=== PATIENT | female | born 1935 | race Caucasian/White ===

== ENCOUNTER 2017-10-11 17:23 | Inpatient (IN) | payer MEDICARE, BC, SELFPAY ==
[2017-10-11 17:38] VITALS: BP 198/98; PULSE 61; RESP 12; TEMP 37.3; O2SAT 96; BMI 38.2
--- NOTE | 2017-10-11 18:05 | ED.DCSUM_ITS ---
- ER Visit Summary Date of Service: 10/11/17 Chief Complaint: Generalized weakness History of Present Illness: The patient is a 82 F who presents with generalized weakness. Weakness is worse with attempt to get up and walk. states she is normally slow but today she is extremely slow and complains of weakness. She is unable to walk to the restroom. She denies fever or chills. She denies night sweats, weight loss or weight gain. She denies any double vision, blurred vision loss of vision. She denies chest pain or palpitations. She denies shortness of breath, cough, dyspnea on exertion orthopnea. She denies any abdominal pain, nausea, vomiting diarrhea. She has black or maroon stool. She denies dysuria, frequency, urgency or hematuria. She denies any back pain. She denies paresthesia, anesthesia or motor weakness. She denies headache. She denies polyuria, polydipsia or urgency. Please read written note for complete detail Physical Examination: Blood pressure is elevated 198/98. Head is atraumatic normocephalic. Pupils are equal round reactive. Extraocular muscles are intact. TMs are pearly white with landmarks noted. Nares patent with no drainage. Posterior pharynx without erythema or exudate. Uvula is midline. There is no dysphonia or dysphasia. Trachea is midline. There is no stridor with auscultation of the neck. Heart is regular without murmur, gallop or rub. S1 and S2 are normal. Lungs are clear to auscultation with good movement of air bilaterally. Abdomen soft flabby nontender. Bowel sounds are slightly diminished. There is no evidence of trauma or skin lesions. She is alert and oriented. She is slow to respond. She does answer questions appropriately. Motor and sensory are intact. DTRs are symmetric with no clonus or Babinski. Cranial 2 through 12 intact. Gait was not tested. Test Results: CBC is unremarkable. BMP is marked for glucose of 187, BUN of 30 with a creatinine of 1.45. BUN to creatinine ratio is greater than 21. UA is unremarkable. Emergency Department Course and Treatment: To assess patient's malaise generalized weakness will obtain a TSH to rule out hypothyroidism. Straight cath to assess for UTI. Light of prior history of colon and renal cancer will obtain a CBC to assess for anemia and electrolyte abnormality. Treatment Plan: Patient is unable to stand even with assistance of 2 ER personnel. Therefore, hospitalist has been paged for 23 observation for safety reasons. Disposition: 23 observation medical surgical floor with consultation to case management and physical therapy Impression: 1. Acute generalized weakness unknown cause 2. Inability to ambulate 3. Hyperglycemia in type I diabetic 4. Prerenal azotemia with renal insufficiency 5. History of hypertension This note was generated with [employer] dictation software. It may contain incorrect words, spelling, and punctuation that were not noted in review of the chart prior to signing ED Disposition - Plan for ED Patient: Chief Complaint: Weakness Referrals: Lidia Rodriguez MD [Primary Care Provider] -
[2017-10-11 18:15] LABS: Bacteria 0 SEEN /hpf (None Seen); Mucous, Urine 0 SEEN /hpf (<or=2+); Red Blood Cells-Urine 0 SEEN /hpf (0-5); Squamous Epithelial Cells - UA 0 SEEN /hpf (5-10)
[2017-10-11 18:16] LABS: Color, Urine Yellow (Yellow); Glucose, Dipstick Normal (Normal); Ketone-Dipstick Negative (Negative); Leukocyte Esterase-Dipstick 25 /ul (Negative); Nitrite-Dipstick Negative (Negative); Occult Blood-Urine 10 /ul (Negative); Protein-Dipstick 30 mg/dl (Negative); Urine Bilirubin Dipstick Negative (Negative); Urine Clarity Clear (Clear); Urine Urobilinogen Normal (Normal)
[2017-10-11 18:24] LABS: White Blood Cells 0-5 SEEN /hpf (0-5)
[2017-10-11 18:29] LABS: Absolute Lymphocyte Count 1.51 X10^3/ul (0.83-4.51); Absolute Neutrophil Count 5.8 X10^3/uL (2.0-7.7); Basophil# 0.02 X10^3/uL; Basophil% 0.3 % (0-1); Eosinophil# 0.06 X10^3/uL; Eosinophils% 0.8 % (0-5); Hematocrit 40.9 % (37-47); Hemoglobin 13.8 g/dl (12.0-15.0); Lymphocyte # 1.51 X10^3/ul (4.0); Mean Corp Hgb Conc 33.7 g/gl (32-36); Mean Corpuscular Volume 91.9 fL (81-99); Mean Platelet Vol. 8.5 fl (6.2-12.0); Monocyte# 0.58 X10^3/uL; Monocyte% 7.3 % (0-10); Neutrophil # 5.77 X10^3/uL (2.7-7.7); Neutrophil % 72.5 % (47-70); Platelet Count 187 K/mm3 (150-450); RBC Distribution Width CV 12.7 % (11.6-14.6); RBC Distribution Width SD 42.6 fl (35.1-43.9); Red Blood Count 4.45 M/mm3 (4.2-5.4)
[2017-10-11 18:31] LABS: POSITIVE COUNT NO; POSITIVE DIFFERENTIAL NO; POSITIVE MORPHOLOGY NO
[2017-10-11 18:46] LABS: Anion Gap 8 (5-15); BUN 30 mg/dL (7-18); Calcium,Total 9.2 mg/dL (8.5-10.1); Chloride 100 mmol/L (98-107); Creatinine, Serum 1.43 mg/dL (0.55-1.02); EST Glomerular Filtration Rate 37 mL/min (>60); Est Glom Filt Rate - Afr Amer 45 mL/min (>60); Estimated Creatinine Clearance 23.28 ml/min; Glucose 187 mg/dL (74-106); Potassium 3.9 mmol/L (3.5-5.1); Sodium Level 137 mmol/L (136-145); Thyroid Stim Hormone (TSH) 2.24 uIU/mL (0.358-3.74)
--- NOTE | 2017-10-11 19:59 | PCM.HP.STD ---
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/2009 Allergies ciprofloxacin [From Cipro] Allergy (Verified 10/11/17 17:40) Unknown Penicillins Allergy (Verified 10/11/17 17:40) Unknown rofecoxib [From Vioxx] Allergy (Verified 10/11/17 17:40) Unknown rosiglitazone [From Avandia] Allergy (Verified 10/11/17 17:40) Unknown sulfamethoxazole [From Septra] Allergy (Verified 10/11/17 17:40) Unknown trimethoprim [From Septra] Allergy (Verified 10/11/17 17:40) Unknown meloxicam [From Mobic] Adverse Reaction (Verified 10/11/17 17:40) Unknown naproxen [From Aleve] Adverse Reaction (Verified 10/11/17 17:40) Unknown triamcinolone [From Kenalog] Adverse Reaction (Verified 10/11/17 17:40) Fever and skin rash Home Medications: Ambulatory Orders Medication Instructions Recorded Aspirin [Lo-Dose Aspirin EC] 81 mg PO DAILY 02/20/17 Atenolol [Tenormin (Beta Calin)] 100 mg PO BID 02/20/17 Calcium Carb/Vitamin D [Os-Sung 1 tablet PO BID 02/20/17 500MG + D] Hydralazine HCl 50 mg PO BID 02/20/17 Insulin Glargine,Hum.rec.anlog 15 unit SC QHS 02/20/17 [Lantus] Multivit-Min/FA/Lycopen/Lutein 1 each PO DAILY 02/20/17 [Centrum Silver Tablet] Omeprazole 20 mg PO DAILY 02/20/17 Polyethylene Glycol 3350 [Miralax] 17 gm PO DAILY 02/20/17 traMADol [Ultram] 1 - 2 tab PO Q4H PRN PRN 02/25/17 Allopurinol [Zyloprim] 100 mg PO DAILY 10/11/17 Ferrous Sulfate 65 mg PO DAILY@0800 10/11/17 Isosorbide Mononitrate [Imdur] 30 mg PO DAILY 10/11/17 Smoking Status: Never smoker VTE Information - Inpt Only VTE Present on Admission: No VTE Mechan Device Prophylaxis: SCD's VTE Pharm Prophylaxis ordered?: Yes - Physical Exam Vital Signs Temp Pulse Resp BP Pulse Ox 99.1 F 61 12 198/98 H 96 10/11/17 17:38 10/11/17 17:38 10/11/17 17:38 10/11/17 17:38 10/11/17 17:38 Assessment/Plan Refer to written note.
[2017-10-11 20:05] VITALS: BMI 37.5
[2017-10-11 20:36] VITALS: BMI 37.6
[2017-10-11 20:51] VITALS: BP 162/56; PULSE 61; RESP 18; TEMP 36.4; O2SAT 97
[2017-10-11] MEDS: 0.9% Normal Saline 1,000 ML 100 ML IV (21:28)
[2017-10-11] MEDS: Ceftriaxone 1 GM/50 ML BAG IV (21:29)
[2017-10-11 21:51] LABS: Bedside Glucose 163 mg/dL (70-110)
[2017-10-11 21:55] VITALS: BP 130/65; PULSE 70
[2017-10-11] MEDS: Atenolol 100 MG Tablet PO (21:55)
[2017-10-11] MEDS: hydrALAZINE 50 MG Tablet PO (21:55)
[2017-10-12 03:40] VITALS: BP 160/88; PULSE 59; RESP 18; TEMP 36.8; O2SAT 99
--- NOTE | 2017-10-12 11:48 | DT_ITS ---
This patient was seen during an EMR downtime October 12, 2017 - October 19, 2017. This patient may have a combination of paper and electronic documentation or all paper documentation. All documentation is viewable within the e-chart portion of [employer] for each patient visit.
--- NOTE | 2017-10-12 12:00 | MRI_ITS ---
STUDY: MRI LUMBAR SPINE WITHOUT CONTRAST REASON FOR EXAM: Female, 82 years old. Low back pain, right leg pain and numbness and tingling in both legs. TECHNIQUE: Standardized fat and water weighted pulse sequences were obtained in the sagittal and axial planes. COMPARISON: None FINDINGS: T9-T10: (Sagittal only). Normal endplates. Normal disc height and morphology. Normal central canal and bilateral intervertebral neural foramina. T10-T11: (Sagittal only). Normal endplates. Normal disc height and morphology. Normal central canal and bilateral intervertebral neural foramina. T11-T12: (Sagittal only). Anterior marginal spurs. Normal T11 superior endplate. Schmorl's node in the central aspect of the T12 superior endplate. Small posterior bulging disc. Normal central canal and bilateral intervertebral neural foramina. T12-L1: Prominent anterior marginal spurs. Pronounced disc space height narrowing with mild Modic type I degenerative vertebral marrow edema underneath the vertebral endplates. Posterior marginal spurs. No extruded disc fragment. Normal central canal and bilateral lateral recesses. Mild asymmetric degenerative facet arthropathy. Normal bilateral intervertebral neural foramina. Normal lumbar lordosis. Moderate dextrorotatory scoliosis of the upper lumbar spine. Normal conus medullaris that terminates at the lower L1 vertebral body level. L1-2: Anterior marginal spurs. Pronounced disc space height narrowing. Modic type II degenerative vertebral marrow fatty changes underneath the vertebral endplates. Left lateral wedging of L1 and L2 vertebral bodies. Minimal degenerative retrolisthesis of L1 on L2. Normal central canal and bilateral lateral recesses. Mild asymmetric degenerative facet arthropathy. Normal bilateral intervertebral neural foramina. L2-3: Anterior marginal spurs. Pronounced disc space height narrowing with mild Modic type II degenerative vertebral marrow fatty changes underneath the vertebral endplates. Minimal degenerative retrolisthesis of L2 on L3. Normal central canal and bilateral lateral recesses. Mild to moderate asymmetric degenerative facet arthropathy. Normal bilateral intervertebral neural foramina. L3-4: Anterior marginal spurs. Pronounced disc space height narrowing. Minimal degenerative retrolisthesis of L3 on L4. Mild asymmetric central canal stenosis with an AP canal diameter of 9 mm. Bilateral posterior ligamenta flava hypertrophy. Moderate bilateral degenerative facet arthropathy. Mild stenosis of the right intervertebral neural foramen. Normal left intervertebral neural foramen. L4-5: Ankylosis of the L4 and L5 vertebral bodies. Posterior marginal spurs. Mild central canal stenosis with an AP canal diameter of 9 mm. Normal bilateral lateral recesses. Partial ankylosis of the facet joints. Normal bilateral intervertebral neural foramina. L5-S1: Moderate disc space height narrowing. Grade 1 degenerative anterolisthesis of L5 on S1. Suspicious right sided far lateral foraminal disc extrusion (series 5, image 6; series 6, image 6). Mild central canal stenosis with an AP canal diameter of 8 mm. Pronounced bilateral degenerative facet hypertrophy. Moderate stenosis of the right intervertebral neural foramen more than the left. Normal visualized sacral ala. Normal visualized paraspinous soft tissue structures. MRI/Spine Lumbar (Routine) IMPRESSION: 1. Suspicious of right-sided far lateral L5-S1 foraminal disc extrusion, moderate stenosis of the right intervertebral neural foramen, pronounced bilateral degenerative facet arthropathy and grade 1 degenerative anterolisthesis of L5 on S1. 2. Pronounced L3-L4 disc space height narrowing with minimal degenerative retrolisthesis of L2 on L3, mild asymmetric central canal stenosis and mild stenosis of the right intervertebral neural foramen. 3. Pronounced at L2-L3 disc space height narrowing with mild Modic type II degenerative vertebral marrow fatty changes underneath the vertebral endplates and minimal degenerative retrolisthesis of L2 on L3. 4. Pronounced L1-L2 disc space height narrowing with Modic type II degenerative vertebral marrow fatty changes underneath the vertebral endplates and minimal degenerative retrolisthesis of L1 on L2. 5. Pronounced T12-L1 disc space height narrowing with mild Modic type I degenerative vertebral marrow edema underneath the vertebral endplates. 6. Moderate dextrorotary scoliosis of the lumbar spine with left lateral wedging of L1 and L2 vertebral bodies. 7. Ankylosis of the L4 and L5 vertebral bodies and partial ankylosis of the L4-L5 facet joints. Electronically Signed: Franco Means MD at 10:48 EDT , Service support ,
[2017-10-16 12:02] LABS: Hematocrit 36.4 % (37-47); Hemoglobin 12.1 g/dl (12.0-15.0); Mean Corp Hgb Conc 33.2 g/gl (32-36); Mean Corpuscular Hgb 31.3 pg (27.0-32.0); Mean Corpuscular Volume 94.1 fL (81-99); Platelet Count 183 K/mm3 (150-450); RBC Distribution Width CV 12.5 % (11.6-14.6); RBC Distribution Width SD 41.9 fl (35.1-43.9); Red Blood Count 3.87 M/mm3 (4.2-5.4); White Blood Count 6.2 K/mm3 (4.4-11.0)
[2017-10-16 12:03] LABS: Mean Platelet Vol. 9.1 fl (6.2-12.0)
[2017-10-16 12:04] LABS: Scan Indicated on CBC? Y/N NO
[2017-10-17 08:57] LABS: Hematocrit 38.5 % (37-47); Hemoglobin 12.9 g/dl (12.0-15.0); Mean Corp Hgb Conc 33.5 g/gl (32-36); Mean Corpuscular Hgb 31.5 pg (27.0-32.0); Mean Corpuscular Volume 93.9 fL (81-99); RBC Distribution Width CV 12.6 % (11.6-14.6); RBC Distribution Width SD 43.3 fl (35.1-43.9); White Blood Count 7.2 K/mm3 (4.4-11.0)
[2017-10-17 08:58] LABS: Erythrocyte Sedimentation Rate 13 mm/hr (0-30); Mean Platelet Vol. 9.2 fl (6.2-12.0); Platelet Count 195 K/mm3 (150-450); Scan Indicated on CBC? Y/N NO
[2017-10-17 10:18] LABS: Anion Gap 9 (5-15); BUN 23 mg/dL (7-18); BUN/Creat Ratio 20.5 RATIO (10-20); Calcium,Total 8.7 mg/dL (8.5-10.1); Chloride 112 mmol/L (98-107); Creatinine, Serum 1.12 mg/dL (0.55-1.02); EST Glomerular Filtration Rate 50 mL/min (>60); Est Glom Filt Rate - Afr Amer 61 mL/min (>60); Estimated Creatinine Clearance 29.73 ml/min; Glucose 144 mg/dL (74-106); Magnesium 1.7 mg/dL (1.6-2.6); Potassium 3.7 mmol/L (3.5-5.1); Sodium Level 146 mmol/L (136-145)
[2017-10-17 10:20] LABS: BUN 19 mg/dL (7-18); BUN/Creat Ratio 18.4 RATIO (10-20); Creatinine, Serum 1.03 mg/dL (0.55-1.02); EST Glomerular Filtration Rate 55 mL/min (>60); Est Glom Filt Rate - Afr Amer 67 mL/min (>60); Estimated Creatinine Clearance 32.32 ml/min; Glucose 174 mg/dL (74-106)
[2017-10-17 10:21] LABS: Anion Gap 11 (5-15); Calcium,Total 8.7 mg/dL (8.5-10.1); Chloride 112 mmol/L (98-107); Magnesium 1.5 mg/dL (1.6-2.6); Potassium 3.6 mmol/L (3.5-5.1); Sodium Level 145 mmol/L (136-145)
[2017-10-20 12:10] LABS: Bedside Glucose 179 mg/dL (70-110)
[2017-10-20 12:12] LABS: Bedside Glucose 241 mg/dL (70-110)
[2017-10-20 12:14] LABS: Bedside Glucose 182 mg/dL (70-110)
[2017-10-20 12:15] LABS: Bedside Glucose 254 mg/dL (70-110)
[2017-10-20 12:17] LABS: Bedside Glucose 279 mg/dL (70-110)
[2017-10-20 12:18] LABS: Bedside Glucose 254 mg/dL (70-110)
[2017-10-20 13:40] LABS: Bedside Glucose 177 mg/dL (70-110)
[2017-10-20 13:42] LABS: Bedside Glucose 181 mg/dL (70-110)
[2017-10-20 13:43] LABS: Bedside Glucose 239 mg/dL (70-110)
[2017-10-20 14:15] LABS: Bedside Glucose 190 mg/dL (70-110)
[2017-10-20 14:19] LABS: Bedside Glucose 232 mg/dL (70-110)
[2017-10-20 14:23] LABS: Bedside Glucose 163 mg/dL (70-110)
[2017-10-20 14:24] LABS: Bedside Glucose 259 mg/dL (70-110)
[2017-10-28 10:36] LABS: Bedside Glucose 146 mg/dL (70-110)
== END 2017-10-15 13:00 | disposition skilled nursing facility (03) | DRG 690 ==
LOC: ED 18:26 → MS3 19:22
PROVIDERS: Internal Medicine; Emergency Provider Emergency Medicine; Family Provider Family Medicine; PCP Family Medicine
DX: N30.00 Acute cystitis without hematuria (principal); I12.9 Hypertensive chronic kidney disease with stage 1 through stage 4 chronic kidney disease, or unspecified chronic kidney disease; E11.22 Type 2 diabetes mellitus with diabetic chronic kidney disease; N18.3 Chronic kidney disease, stage 3 (moderate); Z85.528 Personal history of other malignant neoplasm of kidney; R53.81 Other malaise; I25.10 Atherosclerotic heart disease of native coronary artery without angina pectoris; E83.42 Hypomagnesemia; Z79.4 Long term (current) use of insulin
CPT/HCPCS: 36415; 72148; 80048; 81001; 82962; 83735; 84443; 85025; 85027; 85652; 97116; 97162; 97166; 97530; 97535; 99285; J7030; P9612; A4216; G8978; G8979; G8987; G8988